=== PATIENT | male | born 1930 | race Hispanic/Latino ===

== ENCOUNTER 2019-02-21 11:27 | Emergency (ER) | payer MEDICARE ==
[~2019-02-21] VITALS: Ht 160 cm; Wt 63.5 kg
== END 2019-02-21 12:20 | disposition home or self-care (01) ==
LOC: FSED 11:27
DX: L24.7 Irritant contact dermatitis due to plants, except food (principal); F03.90 Unspecified dementia, unspecified severity, without behavioral disturbance, psychotic disturbance, mood disturbance, and anxiety
CPT/HCPCS: 99283